=== PATIENT | female | born 1985 | race Caucasian/White ===

== ENCOUNTER 2018-04-02 14:55 | Inpatient (IN) | payer MEDICAID, OTHER ==
[~2018-04-02] VITALS: Ht 158.8 cm; Wt 70.3 kg
[2018-04-02 16:01] LABS: BASOPHILS % 1.4 % (0.0-2.0); HEMATOCRIT. 41.5 % (36.0-48.0); HEMOGLOBIN. 13.2 g/dL (12.0-16.0); LYMPHOCYTES % 26.8 % (20.0-50.0); MEAN CORPUSCULAR HEMOGLOBIN 25.3 pg (28.0-32.0); MEAN CORPUSCULAR VOLUME 79.7 fL (81.0-99.0); MEAN PLATELET VOLUME 10.7 fl (7.4-10.4); MONOCYTES % 8.5 % (2.0-8.0); NEUTROPHILS % 55.3 % (40.0-76.0); PLATELET 212 x1000/uL (130-400); RED BLOOD CELL COUNT 5.21 mill/uL (4.2-5.4); RED CELL DISTRIBUTION WIDTH 18.6 % (11.6-14.6)
[2018-04-02 16:04] LABS: CHLORIDE 107 mEq/L (98-107)
[2018-04-02 16:06] LABS: PROTHROMBIN TIME 10.5 sec (9.1-11.1)
[2018-04-02 16:19] LABS: CLARITY URINE CLOUDY (CLEAR); COLOR URINE YELLOW (YELLOW); KETONES URINE NEGATIVE (NEGATIVE); LEUKOCYTE ESTERASE URINE 2+ (NEGATIVE); NITRITE URINE NEGATIVE (NEGATIVE); OCCULT BLOOD URINE NEGATIVE (NEGATIVE); PROTEIN URINE NEGATIVE (NEGATIVE); SPECIFIC GRAVITY URINE 1.009 (1.005-1.030); UROBILINOGEN URINE 0.2 E.U./dL (0.2-1.0)
[2018-04-02] MEDS ORDERED: NITROFURANTOIN 100MG M/M CAPSULE PO ONE (17:00)
[2018-04-02] MEDS ORDERED: ONDANSETRON HCL 4MG/2ML INJ IV PRN (18:15)
[2018-04-02] MEDS ORDERED: ACETAMINOPHEN 325MG TABLET PO PRN (18:15)
[2018-04-02] MEDS ORDERED: MAGNESIUM/ALUMINUM HYDROXIDE/SIMETHICONE 30ML UDC PO ONE (20:00)
[2018-04-02] MEDS ORDERED: CEFTRIAXONE 1 G PREMIX 50 ML IV SCH (21:00)
[2018-04-02 21:30] VITALS: BP 96/50
[2018-04-02 22:13] VITALS: BP 96/50
[2018-04-02 22:51] VITALS: BP 96/50
[2018-04-02] MEDS ORDERED: PANT40TA4 MT (22:55)
[2018-04-02] MEDS ORDERED: MAGN400T39 MT (22:55)
[2018-04-02] MEDS ORDERED: METO25TA6 MT (22:55)
[2018-04-02 23:48] VITALS: BP 96/48
[2018-04-03 04:00] VITALS: BP 104/50
[2018-04-03 06:03] LABS: BASOPHILS % 1.2 % (0.0-2.0); EOSINOPHILS % 8.9 % (0.0-5.0); HEMATOCRIT. 42.4 % (36.0-48.0); HEMOGLOBIN. 13.8 g/dL (12.0-16.0); LYMPHOCYTES % 35.1 % (20.0-50.0); MEAN CORPUSCULAR HEMOGLOBIN 25.8 pg (28.0-32.0); MEAN CORPUSCULAR VOLUME 79.3 fL (81.0-99.0); MONOCYTES % 8.6 % (2.0-8.0); NEUTROPHILS % 46.2 % (40.0-76.0); RED BLOOD CELL COUNT 5.34 mill/uL (4.2-5.4); RED CELL DISTRIBUTION WIDTH 18.3 % (11.6-14.6)
[2018-04-03 06:18] LABS: CHLORIDE 109 mEq/L (98-107)
[2018-04-03 08:00] VITALS: BP_SYST 100; BP_SYST 104; BP_SYST 96; BP_DIAS 55; BP_DIAS 63; BP_DIAS 65
[2018-04-03] MEDS ORDERED: METOPROLOL TARTRATE 25MG TABLET PO SCH ×2 (09:00→21:00)
[2018-04-03] MEDS: MAGNESIUM OXIDE 400MG TABLET PO SCH (10:48)
[2018-04-03 10:51] LABS: UCG SCREEN NEGATIVE
[2018-04-03 11:02] LABS: *AMPHETAMINES SCREEN URINE NEGATIVE (NEGATIVE); *BARBITURATES SCREEN URINE NEGATIVE (NEGATIVE); *BENZODIAZEPINES SCREEN URINE NEGATIVE (NEGATIVE); *COCAINE SCREEN URINE NEGATIVE (NEGATIVE); METHADONE URINE SCREEN NEGATIVE (NEGATIVE); OPIATES URINE SCREEN NEGATIVE (NEGATIVE)
[2018-04-03 11:03] LABS: CANNABINOID URINE SCREEN NEGATIVE (NEGATIVE); PHENCYCLIDINE URINE SCREEN NEGATIVE (NEGATIVE)
[2018-04-03 12:04] LABS: MEAN PLATELET VOLUME 10.4 fl (7.4-10.4); PLATELET 186 x1000/uL (130-400)
[2018-04-03 16:00] VITALS: BP 104/59
[2018-04-03 16:20] VITALS: BP 115/52
[2018-04-03 20:00] VITALS: BP_SYST 102; BP_SYST 83; BP_SYST 93; BP_DIAS 41; BP_DIAS 44; BP_DIAS 62
[2018-04-03] MEDS: CEFTRIAXONE 1 G PREMIX 50 ML IV SCH (20:08)
[2018-04-03] MEDS: MIDODRINE HCL 5MG TABLET PO SCH (20:10)
[2018-04-03] MEDS: SOTALOL HCL 80MG TABLET PO SCH (20:10)
[2018-04-04] VITALS (9 sets, daily range): BP systolic 82–99; BP diastolic 38–65
[2018-04-04] MEDS ORDERED: SODIUM CHLORIDE 0.9% 300 ML IV SCH (07:00)
[2018-04-04 07:13] LABS: BASOPHILS % 1.1 % (0.0-2.0); EOSINOPHILS % 9.5 % (0.0-5.0); HEMATOCRIT. 39.7 % (36.0-48.0); HEMOGLOBIN. 12.8 g/dL (12.0-16.0); LYMPHOCYTES % 29.4 % (20.0-50.0); MEAN CORPUSCULAR HEMOGLOBIN 25.4 pg (28.0-32.0); MONOCYTES % 10.1 % (2.0-8.0); NEUTROPHILS % 49.9 % (40.0-76.0); PLATELET 189 x1000/uL (130-400); RED BLOOD CELL COUNT 5.02 mill/uL (4.2-5.4); RED CELL DISTRIBUTION WIDTH 18.2 % (11.6-14.6)
[2018-04-04 07:42] LABS: CHLORIDE 109 mEq/L (98-107)
[2018-04-04] MEDS ORDERED: IOHEXOL-300 100 ML BOTTLE ONE (07:52)
[2018-04-04] MEDS ORDERED: LIDOCAINE HCL 1% 20ML VIAL (Pyxis) INJ ONE (07:52)
[2018-04-04] MEDS ORDERED: GENTAMICIN SULF 40MG/ML 2ML VIAL ONE (07:52)
[2018-04-04] MEDS ORDERED: GENTAMICIN/NS IRRIGATION 500 ML IR ONE (07:53)
[2018-04-04] MEDS ORDERED: FENTANYL CITRATE/PF 50MCG/ML 2ML VIAL ONE (08:45)
[2018-04-04] MEDS ORDERED: PROPOFOL 200MG/20ML VIAL IV ONE (08:46)
[2018-04-04] MEDS ORDERED: MIDAZOLAM HCL 2 MG/2 ML VIAL ONE (08:46)
[2018-04-04] MEDS ORDERED: DEXAMETHASONE 4MG/ML 1ML VIAL ONE ×2 (08:50→11:42)
[2018-04-04] MEDS ORDERED: ONDANSETRON HCL 4MG/2ML INJ ONE ×2 (08:51→11:42)
[2018-04-04] MEDS: MAGNESIUM OXIDE 400MG TABLET PO SCH (09:00)
[2018-04-04] MEDS ORDERED: LABETALOL 5MG/ML SYR 20 MG/4 ML SYRINGE IV PRN (09:30)
[2018-04-04] MEDS ORDERED: HYDROMORPHONE HCL/PF 2MG/ML CPJ IV PRN ×2 (09:30→16:30)
[2018-04-04] MEDS ORDERED: MEPERIDINE HCL/PF 25MG/ML CPJ IV PRN (09:30)
[2018-04-04] MEDS ORDERED: ONDANSETRON HCL 4MG/2ML INJ IV PRN (09:30)
[2018-04-04] MEDS ORDERED: SODIUM CHLORIDE 0.9% 10ML VIAL ONE (11:51)
[2018-04-04] MEDS ORDERED: LIDOCAINE HCL/PF 1% 10 MG/ML 5ML VIAL ONE (11:51)
[2018-04-04] MEDS: HYDROCODONE/ACETAMINOPHEN 5/325MG TABLET PO PRN (14:10)
[2018-04-04] MEDS: SOTALOL HCL 80MG TABLET PO SCH ×2 (14:51→20:59)
[2018-04-04] MEDS: MIDODRINE HCL 5MG TABLET PO SCH ×3 (14:51→17:00)
[2018-04-04] MEDS: VANCOMYCIN 1 G PREMIX 200 ML IV SCH (14:54)
[2018-04-04] MEDS: CEFTRIAXONE 1 G PREMIX 50 ML IV SCH (20:59)
[2018-04-04] MEDS ORDERED: SOTALOL HCL 80MG TABLET PO NR (23:00)
[2018-04-05] VITALS: BP 100/59
[2018-04-05 02:11] VITALS: BP 93/61
[2018-04-05 04:11] VITALS: BP 94/58
[2018-04-05] MEDS: HYDROCODONE/ACETAMINOPHEN 5/325MG TABLET PO PRN (05:52)
[2018-04-05 06:39] LABS: HEMATOCRIT. 38.3 % (36.0-48.0); HEMOGLOBIN. 12.3 g/dL (12.0-16.0); MEAN CORPUSCULAR HEMOGLOBIN 25.4 pg (28.0-32.0); MEAN CORPUSCULAR VOLUME 78.9 fL (81.0-99.0); MEAN PLATELET VOLUME 10.7 fl (7.4-10.4); PLATELET 159 x1000/uL (130-400); RED BLOOD CELL COUNT 4.86 mill/uL (4.2-5.4); RED CELL DISTRIBUTION WIDTH 17.5 % (11.6-14.6)
[2018-04-05 06:46] LABS: CHLORIDE 106 mEq/L (98-107)
[2018-04-05 08:00] VITALS: BP 96/66
[2018-04-05] MEDS: MAGNESIUM OXIDE 400MG TABLET PO SCH (08:13)
[2018-04-05] MEDS: SOTALOL HCL 80MG TABLET PO SCH (08:14)
[2018-04-05] MEDS: MIDODRINE HCL 5MG TABLET PO SCH ×2 (08:14→12:31)
[2018-04-05] MEDS: VANCOMYCIN 1 G PREMIX 200 ML IV SCH (08:16)
[2018-04-05 10:32] LABS: PLATELET ESTIMATE NORMAL
[2018-04-05 12:00] VITALS: BP 90/67
[2018-04-05 13:03] VITALS: BP 90/67
== END 2018-04-05 15:24 | disposition home or self-care (01) | DRG 161 ==
LOC: ER 14:55 → EDBEDREQ 15:33 → EDBEDREQSVC 17:06 → EDBEDREQTM 17:06 → EDBEDREQ 17:06 → ENRESERV 20:08 → 6WST 22:35 → 3WST 04-04 13:50
PROVIDERS: ADMIT Internal Medicine; ATTEND Internal Medicine
PROC: 4A023N6 Measurement of Cardiac Sampling and Pressure, Right Heart, Percutaneous Approach (ICD-10-PCS; principal; 2018-04-04)
PROC: 02HK3KZ Insertion of Defibrillator Lead into Right Ventricle, Percutaneous Approach (ICD-10-PCS; 2018-04-04)
PROC: 0JH608Z Insertion of Defibrillator Generator into Chest Subcutaneous Tissue and Fascia, Open Approach (ICD-10-PCS; 2018-04-04)
PROC: 0JPT0PZ Removal of Cardiac Rhythm Related Device from Trunk Subcutaneous Tissue and Fascia, Open Approach (ICD-10-PCS; 2018-04-04)
PROC: B5161ZZ Fluoroscopy of Right Subclavian Vein using Low Osmolar Contrast (ICD-10-PCS; 2018-04-04)
PROC: 4B02XSZ Measurement of Cardiac Pacemaker, External Approach (ICD-10-PCS; 2018-04-04)
DX: I47.2 Ventricular tachycardia (principal); I95.89 Other hypotension; I27.21 Secondary pulmonary arterial hypertension; I42.1 Obstructive hypertrophic cardiomyopathy; E83.42 Hypomagnesemia; I49.3 Ventricular premature depolarization; I48.91 Unspecified atrial fibrillation; K21.9 Gastro-esophageal reflux disease without esophagitis; N39.0 Urinary tract infection, site not specified; Z90.49 Acquired absence of other specified parts of digestive tract; Z95.0 Presence of cardiac pacemaker; Z98.84 Bariatric surgery status; Z88.1 Allergy status to other antibiotic agents; Z88.0 Allergy status to penicillin; Z91.018 Allergy to other foods
CPT/HCPCS: 33233; 33249; 36415; 71045; 75820; 78582; 80048; 80305; 81025; 83735; 83880; 84443; 84484; 85379; 93005; 93306; 93451; 93641; 93970; 96365; 97163; 99285; A9558; C1721; C1892; C1893; C1899; J0696; J1100; J1170; J1580; J1644; J2250; J2405; J2704; J3010; J3370; J3490; J7040; J7050; Q9967

== ENCOUNTER 2018-12-15 07:55 | Inpatient (IN) | payer MEDICAID, OTHER ==
[~2018-12-15] VITALS: Ht 157.5 cm; Wt 81.2 kg
[~2018-12-15 07:55] MED LIST: MAGN400T39 MT; METO25TA6 MT; PANT40TA4 MT
[2018-12-15 08:44] LABS: CHLORIDE 109 mEq/L (98-107)
[2018-12-15 08:46] LABS: BASOPHILS % 0.8 % (0.0-2.0); EOSINOPHILS % 2.3 % (0.0-5.0); HEMATOCRIT. 48.7 % (36.0-48.0); HEMOGLOBIN. 16.5 g/dL (12.0-16.0); LYMPHOCYTES % 21.8 % (20.0-50.0); MEAN CORPUSCULAR HEMOGLOBIN 29.8 pg (28.0-32.0); MEAN PLATELET VOLUME 10.4 fl (7.4-10.4); MONOCYTES % 8.2 % (2.0-8.0); NEUTROPHILS % 66.9 % (40.0-76.0); PLATELET 124 x1000/uL (130-400); RED BLOOD CELL COUNT 5.54 mill/uL (4.2-5.4); RED CELL DISTRIBUTION WIDTH 14.4 % (11.6-14.6)
[2018-12-15 08:51] LABS: ETHANOL BLOOD < 10 mg/dL
[2018-12-15 08:55] LABS: HCG SCREEN NEGATIVE
[2018-12-15] MEDS ORDERED: SODIUM CHLORIDE 0.9% 1,000 ML IV ONE (09:08)
[2018-12-15 09:18] LABS: T4 FREE 1.16 ng/dL (0.76-1.46)
[2018-12-15 12:12] LABS: OPIATES URINE SCREEN NEGATIVE (NEGATIVE); PHENCYCLIDINE URINE SCREEN NEGATIVE (NEGATIVE)
[2018-12-15 12:13] LABS: *AMPHETAMINES SCREEN URINE NEGATIVE (NEGATIVE); *BARBITURATES SCREEN URINE NEGATIVE (NEGATIVE); *BENZODIAZEPINES SCREEN URINE NEGATIVE (NEGATIVE); *COCAINE SCREEN URINE NEGATIVE (NEGATIVE); CANNABINOID URINE SCREEN NEGATIVE (NEGATIVE); METHADONE URINE SCREEN NEGATIVE (NEGATIVE)
[2018-12-15 13:53] VITALS: BP 96/61
[2018-12-15 14:00] VITALS: BP 129/68
[2018-12-15] MEDS ORDERED: MAGNESIUM 2 G PREMIX 50 ML IV NR (14:00)
[2018-12-15] MEDS ORDERED: ACETAMINOPHEN 325MG TABLET PO PRN (14:30)
[2018-12-15] MEDS ORDERED: ONDANSETRON HCL 4MG/2ML INJ IV PRN (14:30)
[2018-12-15] MEDS ORDERED: DOCUSATE SODIUM 100MG CAPSULE PO PRN (14:30)
[2018-12-15] MEDS: ENOXAPARIN 40MG/0.4ML SYR SUBCUT SCH ×2 (15:00→16:07)
[2018-12-15 16:00] VITALS: BP 94/70
[2018-12-15] MEDS: SODIUM CHL 0.45% + KCL 20MEQ/L 1,000 ML IV SCH (16:07)
[2018-12-15 18:00] VITALS: BP 100/56
[2018-12-15 20:00] VITALS: BP 92/62
[2018-12-15] MEDS: METOPROLOL TARTRATE 25MG TABLET PO SCH ×2 (20:28→21:00)
[2018-12-15 22:00] VITALS: BP 106/72
[2018-12-16] VITALS (12 sets, daily range): BP systolic 89–136; BP diastolic 54–83
[2018-12-16] MEDS: SODIUM CHL 0.45% + KCL 20MEQ/L 1,000 ML IV SCH ×3 (01:04→20:17)
[2018-12-16] MEDS: PANTOPRAZOLE 40MG DR TABLET PO SCH (06:27)
[2018-12-16 07:43] LABS: BASOPHILS % 1.1 % (0.0-2.0); EOSINOPHILS % 6.4 % (0.0-5.0); HEMATOCRIT. 46.1 % (36.0-48.0); HEMOGLOBIN. 15.5 g/dL (12.0-16.0); LYMPHOCYTES % 28.4 % (20.0-50.0); MEAN CORPUSCULAR HEMOGLOBIN 29.4 pg (28.0-32.0); MEAN CORPUSCULAR VOLUME 87.4 fL (81.0-99.0); MEAN PLATELET VOLUME 10.3 fl (7.4-10.4); MONOCYTES % 8.3 % (2.0-8.0); NEUTROPHILS % 55.8 % (40.0-76.0); PLATELET 118 x1000/uL (130-400); RED BLOOD CELL COUNT 5.28 mill/uL (4.2-5.4); RED CELL DISTRIBUTION WIDTH 14.1 % (11.6-14.6)
[2018-12-16 08:02] LABS: CHLORIDE 110 mEq/L (98-107)
[2018-12-16] MEDS: METOPROLOL TARTRATE 25MG TABLET PO SCH ×2 (08:58→20:49)
[2018-12-16] MEDS ORDERED: CALCIUM CARBONATE 500MG TABLET CHEW PO PRN (10:15)
[2018-12-16] MEDS: ENOXAPARIN 40MG/0.4ML SYR SUBCUT SCH (15:00)
[2018-12-17] VITALS (12 sets, daily range): BP systolic 95–117; BP diastolic 42–78
[2018-12-17] MEDS: SODIUM CHL 0.45% + KCL 20MEQ/L 1,000 ML IV SCH ×2 (05:57→16:20)
[2018-12-17] MEDS: PANTOPRAZOLE 40MG DR TABLET PO SCH (05:57)
[2018-12-17 06:59] LABS: BASOPHILS % 0.9 % (0.0-2.0); EOSINOPHILS % 8.2 % (0.0-5.0); HEMATOCRIT. 42.3 % (36.0-48.0); HEMOGLOBIN. 14.6 g/dL (12.0-16.0); MEAN CORPUSCULAR VOLUME 87.3 fL (81.0-99.0); MEAN PLATELET VOLUME 10.4 fl (7.4-10.4); MONOCYTES % 10.1 % (2.0-8.0); NEUTROPHILS % 44.8 % (40.0-76.0); PLATELET 122 x1000/uL (130-400); RED BLOOD CELL COUNT 4.85 mill/uL (4.2-5.4); RED CELL DISTRIBUTION WIDTH 14.3 % (11.6-14.6)
[2018-12-17 07:08] LABS: CHLORIDE 113 mEq/L (98-107)
[2018-12-17] MEDS: METOPROLOL TARTRATE 25MG TABLET PO SCH ×2 (09:00→20:06)
[2018-12-17] MEDS: MULTAQ 400 MG PO SCH ×2 (13:04→18:10)
[2018-12-17] MEDS: ENOXAPARIN 40MG/0.4ML SYR SUBCUT SCH (15:00)
[2018-12-18] VITALS (13 sets, daily range): BP systolic 84–119; BP diastolic 46–73
[2018-12-18] MEDS: SODIUM CHL 0.45% + KCL 20MEQ/L 1,000 ML IV SCH ×2 (02:17→12:00)
[2018-12-18] MEDS: MULTAQ 400 MG PO SCH ×2 (07:20→17:23)
[2018-12-18] MEDS: FAMOTIDINE 20MG TABLET PO SCH ×2 (08:19→21:04)
[2018-12-18] MEDS: METOPROLOL TARTRATE 25MG TABLET PO SCH ×2 (08:21→21:06)
[2018-12-18] MEDS: ENOXAPARIN 40MG/0.4ML SYR SUBCUT SCH ×2 (15:00→15:14)
[2018-12-19] VITALS (8 sets, daily range): BP systolic 81–117; BP diastolic 55–71
[2018-12-19] MEDS: SODIUM CHL 0.45% + KCL 20MEQ/L 1,000 ML IV SCH (00:25)
[2018-12-19 06:50] LABS: CHLORIDE 111 mEq/L (98-107)
[2018-12-19 06:59] LABS: BASOPHILS % 1.2 % (0.0-2.0); EOSINOPHILS % 5.5 % (0.0-5.0); HEMATOCRIT. 40.4 % (36.0-48.0); HEMOGLOBIN. 13.7 g/dL (12.0-16.0); LYMPHOCYTES % 35.9 % (20.0-50.0); MEAN CORPUSCULAR HEMOGLOBIN 29.7 pg (28.0-32.0); MEAN PLATELET VOLUME 10.1 fl (7.4-10.4); MONOCYTES % 8.1 % (2.0-8.0); NEUTROPHILS % 49.3 % (40.0-76.0); PLATELET 135 x1000/uL (130-400); RED CELL DISTRIBUTION WIDTH 14.1 % (11.6-14.6)
[2018-12-19] MEDS: MULTAQ 400 MG PO SCH (07:46)
[2018-12-19] MEDS: FAMOTIDINE 20MG TABLET PO SCH (08:12)
== END 2018-12-19 16:07 | disposition home or self-care (01) | DRG 201 ==
LOC: ER 08:07 → 3WST 08:53 → EDBEDREQ 09:02 → EDBEDREQTM 09:02 → ENRESERV 10:38 → 3WST 21:37
PROVIDERS: ADMIT Internal Medicine; ATTEND Internal Medicine
DX: I48.91 Unspecified atrial fibrillation (principal); I47.2 Ventricular tachycardia; I42.1 Obstructive hypertrophic cardiomyopathy; I24.9 Acute ischemic heart disease, unspecified; I10 Essential (primary) hypertension; I48.92 Unspecified atrial flutter; I49.3 Ventricular premature depolarization; Z86.79 Personal history of other diseases of the circulatory system; Z95.810 Presence of automatic (implantable) cardiac defibrillator; Z98.84 Bariatric surgery status; Z88.0 Allergy status to penicillin; Z88.6 Allergy status to analgesic agent; Z79.899 Other long term (current) drug therapy
CPT/HCPCS: 36415; 71045; 80048; 80305; 80320; 83735; 83880; 84439; 84443; 84484; 84703; 93005; 93306; 99285; J1650; J2405; J3475; J3480; J7030; G0480